=== PATIENT | female | born 1950 | race Caucasian/White ===

== ENCOUNTER 2018-11-04 20:00 | Emergency (ER) | payer MEDICARE ==
[~2018-11-04] VITALS: Ht 157.5 cm; Wt 88.9 kg
[2018-11-04 22:42] VITALS: BP 128/76
== END 2018-11-04 23:05 | disposition home or self-care (01) ==
LOC: ER 20:02
DX: S71.131A Puncture wound without foreign body, right thigh, initial encounter (principal); I83.91 Asymptomatic varicose veins of right lower extremity; J44.9 Chronic obstructive pulmonary disease, unspecified; E78.5 Hyperlipidemia, unspecified; I10 Essential (primary) hypertension; I25.2 Old myocardial infarction; W26.9XXA Contact with unspecified sharp object(s), initial encounter; Y93.89 Activity, other specified; Y99.8 Other external cause status; Y92.89 Other specified places as the place of occurrence of the external cause